=== PATIENT | female | born 1975 | race Caucasian/White ===

== ENCOUNTER 2019-02-05 03:49 | Emergency (ER) | payer MEDICAID ==
[~2019-02-05] VITALS: Wt 54.0 kg
[~2019-02-05 03:49] MED LIST: FERR-18 PO; PREN1TAB49 PO; PRO20 PO
[2019-02-05] MEDS ORDERED: ONDANSETRON 4 MG INJ IV STA (04:37)
[2019-02-05] MEDS ORDERED: KETOROLAC 15 MG INJ IV STA (04:37)
[2019-02-05] MEDS ORDERED: SOD CHLORIDE 0.9% 1,000 ML IV STA (04:37)
[2019-02-05] MEDS ORDERED: IBUP-1542 PO (05:09)
[2019-02-05] MEDS ORDERED: CEPH-443 PO (05:09)
--- NOTE | 2019-02-05 05:42 | ERD ---
ER Documentation Chief Complaint Chief Complaint bib self, cc: flank pain on left side x 1 week, taking atb po tx for uti HPI 43-year-old woman here with complaints of flank pain worse on the left compared to the right and continued suprapubic discomfort and dysuria. She was diagnosed with a urinary tract infection a few days ago and has been using nitrofurantoin daily as prescribed. She had a low-grade fever today and developed left flank pain and came here for reevaluation. She denies hematuria, no chest pain or shortness of breath, no cough, no abdominal pain, no vomiting or diarrhea ROS All systems reviewed and are negative except as per history of present illness. Medications Home Meds Active Scripts Ibuprofen* (Motrin*) 600 Mg Tab, 600 MG PO Q8 PRN for PAIN AND/OR INFLAMMATION, #30 TAB Prov:BELEN DIAZ MD 02/05/19 Cephalexin* (Keflex*) 500 Mg Capsule, 500 MG PO QID for 5 Days, CAP Prov:BELEN DIAZ MD 02/05/19 Reported Medications Nifedipine* (Procardia*) 20 Mg Cap, 20 MG PO Q6 07/21/12 Ferrous Sulfate (Iron) 325 Mg Tablet, 325 MG PO DAILY 06/14/12 Vits W-Ca,Fe,Fa(<1MG) () 1 Tab Tablet, 1 TAB PO DAILY 06/14/12 Allergies Allergies: Coded Allergies: No Known Allergies (Verified Allergy, 07/21/12) PMhx/Soc Medical and Surgical Hx: pt denies Medical Hx, pt denies Surgical Hx Hx Alcohol Use: No Hx Substance Use: No Hx Tobacco Use: No Smoking Status: Never smoker FmHx Family History: No diabetes Physical Exam Vitals Vital Signs Date Temp Pulse Resp B/P (MAP) Pulse Ox O2 O2 Flow FiO2 Time Delivery Rate 02/05/19 100.0 104 19 118/81 100 04:01 (93) Physical Exam GENERAL: Well-developed, well-nourished, well-hydrated, in no apparent distress, looks nontoxic in appearance NEURO: Alert and oriented 3, cranial nerves II through XII intact bilaterally, pupils equal round reactive to light CARDIAC: Regular rate and rhythm, no murmurs rubs or gallops LUNGS: Clear bilaterally no wheezing crackles or stridor ABDOMEN: Soft nontender, no guarding, no rigidity, no rebound, no psoas sign no obturator sign. No CVA tenderness to palpation SKIN: Warm and dry to touch, no abrasions, contusions, or hematomas, no lacerations, no ecchymosis, no target lesions, and without ulcers PSYCH: Normal affect without agitation or irritability Result Diagram: 02/05/19 0443 02/05/19 0443 Results 24 hrs Laboratory Tests Test 02/05/19 04:43 02/05/19 04:45 White Blood Count 9.6 10^3/ul Red Blood Count 3.86 10^6/ul Hemoglobin 11.8 g/dl Hematocrit 35.4 % Mean Corpuscular Volume 91.7 fl Mean Corpuscular Hemoglobin 30.6 pg Mean Corpuscular Hemoglobin Concent 33.3 g/dl Red Cell Distribution Width 12.1 % Platelet Count 438 10^3/UL Mean Platelet Volume 9.1 fl Immature Granulocytes % 0.300 % Neutrophils % 75.8 % Lymphocytes % 13.1 % Monocytes % 9.8 % Eosinophils % 0.5 % Basophils % 0.5 % Nucleated Red Blood Cells % 0.0 /100WBC Immature Granulocytes # 0.030 10^3/ul Neutrophils # 7.3 10^3/ul Lymphocytes # 1.3 10^3/ul Monocytes # 0.9 10^3/ul Eosinophils # 0.1 10^3/ul Basophils # 0.1 10^3/ul Nucleated Red Blood Cells # 0.0 10^3/ul Urine Color YELLOW Urine Clarity SLIGHTLY CLOUDY Urine pH 6.0 Urine Specific [place] 1.010 Urine Ketones NEGATIVE mg/dL Urine Nitrite NEGATIVE mg/dL Urine Bilirubin NEGATIVE mg/dL Urine Urobilinogen NEGATIVE mg/dL Urine Leukocyte Esterase TRACE Chika/ul Urine Microscopic RBC 1 /HPF Urine Microscopic WBC 5 /HPF Urine Squamous Epithelial Cells MODERATE /HPF Urine Bacteria FEW /HPF Urine Hemoglobin NEGATIVE mg/dL Urine Glucose NEGATIVE mg/dL Urine Total Protein NEGATIVE mg/dl Sodium Level 141 mmol/L Potassium Level 4.0 mmol/L Chloride Level 103 mmol/L Carbon Dioxide Level 28 mmol/L Anion Gap 10 Blood Urea Nitrogen 10 mg/dl Creatinine 0.56 mg/dl Est Glomerular Filtrat Rate mL/min > 60 mL/min Glucose Level 97 mg/dl Calcium Level 9.6 mg/dl Total Bilirubin 0.3 mg/dl Direct Bilirubin 0.00 mg/dl Indirect Bilirubin 0.3 mg/dl Aspartate Amino Transf (AST/SGOT) 21 IU/L Alanine Aminotransferase (ALT/SGPT) 23 IU/L Alkaline Phosphatase 66 IU/L Total Protein 7.6 g/dl Albumin 4.2 g/dl Globulin 3.40 g/dl Albumin/Globulin Ratio 1.23 Lipase 37 U/L POC Beta HCG, Qualitative NEGATIVE Current Medications Medications Dose Sig/Dexter Start Time Status Last (Trade) Ordered Route PRN Stop Time Admin Dose Reason Admin Sodium 1,000 ml @ Q1H STAT 02/05/19 02/05/19 Chloride 1,000 mls/hr IV 04:37 02/05/19 04:37 05:36 Ondansetron 4 mg ONCE STAT 02/05/19 DC 02/05/19 HCl (Zofran IV 04:37 02/05/19 04:49 Inj) 04:38 Ketorolac 15 mg ONCE STAT 02/05/19 DC 02/05/19 Tromethamine IV 04:37 02/05/19 04:52 (Toradol) 04:38 Procedures/MDM IV line was established patient was placed on quality assurance monitor body rhythm strip revealed a sinus tachycardia at 110 bpm with upright P and T waves. Patient was febrile I administered 1 L normal saline IV, Toradol 15 mg IV, Zofran 4 mg IV. CBC and electrolytes are normal, liver function tests normal, urinalysis appears okay consistent with partially treated UTI I administered ceftriaxone 1 g IV Patient's tachycardia resolved and she defervesced, she feels much better and I repeated CVA palpation which revealed no obvious tenderness although I do suspect a sending urinary tract infection. Her renal function is good and she is able to urinate without difficulty, I switched her nitrofurantoin to cephalexin 4 times daily, and patient was given return precaution instructions Differential diagnoses considered, included but not limited to acute coronary syndrome, pulmonary embolism, aortic dissection, abdominal aortic aneurysm, sepsis, stroke, meningitis, encephalitis, pneumonia, appendicitis, cholecystitis, bowel obstruction, pyelonephritis, nephrolithiasis, cystitis, as well as metabolic, hematologic, and electrolyte abnormalities. As well as abscess, cellulitis, fractures, and dislocations. Patient feels much better at this time, and vital signs are normal, symptoms have improved. I did give strict instructions to return to the ED if symptoms continue or worsen, patient will otherwise follow-up with primary care physician. Patient understood instructions and agreed to plan. Disclaimer: Inadvertent spelling and grammatical errors are likely due to EHR/dictation software use and do not reflect on the overall quality of patient care. Also, please note that the electronic time recorded on this note does not necessarily reflect the actual time of the patient encounter. Departure Diagnosis: Primary Impression: Acute UTI Condition: Good Patient Instructions: Flank Pain, Uncertain Cause, Bladder Infection, Female (Adult) BELEN DIAZ MD February 05, 2019 05:42
[2019-02-05] MEDS ORDERED: CEFTRIAXONE 1 GM/50 ML (PMX) 50 ML IVPB ONE (05:47)
[2019-02-05 06:35] VITALS: BP 101/54; PULSE 78; RESP 16
== END 2019-02-05 06:35 | disposition home or self-care (01) ==
LOC: E/R 03:49
DX: N39.0 Urinary tract infection, site not specified (principal)
CPT/HCPCS: 36415; 80053; 81001; 81025; 83690; 85025; 87086; 96374; 96375; J0696; J1885; J2405; J7030; Z7502